=== PATIENT | male | born 1950 | race African-American/Black ===

== ENCOUNTER 2025-07-07 11:34 | Emergency (ER) | payer MEDICARE ==
[~2025-07-07] VITALS: Ht 177.8 cm; Wt 125.0 kg
[2025-07-07 11:44] VITALS: O2SAT 99
[2025-07-07 12:11] LABS: BASOPHILS % 0.6 % (0.0-2.0); EOSINOPHILS % 3.3 % (0.0-5.0); HEMATOCRIT. 43.0 % (42.0-52.0); HEMOGLOBIN. 14.0 g/dL (14.0-18.0); LYMPHOCYTES % 35.5 % (20.0-50.0); MEAN PLATELET VOLUME 10.0 fl (7.4-10.4); MONOCYTES % 7.3 % (2.0-8.0); NEUTROPHILS % 53.3 % (40.0-76.0); PLATELET 147 x1000/uL (130-400); RED BLOOD CELL COUNT 5.04 mill/uL (4.7-6.1); RED CELL DISTRIBUTION WIDTH 14.7 % (11.6-14.6)
[2025-07-07 12:25] LABS: CREATININE 1.2 mg/dL (0.6-1.3); UREA NITROGEN BLOOD 12 mg/dL (9-23)
[2025-07-07 14:41] VITALS: BP 165/57; PULSE 61; RESP 16; TEMP 36.8; O2SAT 100
== END 2025-07-07 14:44 | disposition home or self-care (01) ==
LOC: ER 11:34
DX: M79.89 Other specified soft tissue disorders (principal); I10 Essential (primary) hypertension; E11.9 Type 2 diabetes mellitus without complications
CPT/HCPCS: 36415; 80048; 85025; 93970; 99284